=== PATIENT | male | born 1980 | race Caucasian/White ===

== ENCOUNTER 2016-11-30 12:58 | Emergency (ER) | payer OTHER ==
[~2016-11-30] VITALS: Ht 180.3 cm; Wt 93.2 kg
[2016-11-30 12:58] VITALS: BP 140/87
[2016-11-30] MEDS ORDERED: FLUORESCEIN OPHTH 1 MG STRIP OS ONE (13:45)
[2016-11-30] MEDS ORDERED: ERYT5OPO OS (13:51)
[2016-11-30] MEDS ORDERED: ERYTHROMYCIN OPHTH OINT OS ONE (14:00)
== END 2016-11-30 14:10 | disposition home or self-care (01) ==
LOC: M ED 12:58
DX: H10.32 Unspecified acute conjunctivitis, left eye (principal)

== ENCOUNTER 2017-07-25 12:27 | Emergency (ER) | payer OTHER | END 2017-07-25 14:31 | disposition home or self-care (01) | LOC: M ED 12:27 | DX: R05 Cough (principal); J30.2 Other seasonal allergic rhinitis | CPT/HCPCS: 99282 ==